=== PATIENT | male | born 1950 | race Caucasian/White ===

== ENCOUNTER 2021-03-05 15:17 | Emergency (ER) | payer MEDICARE ==
[~2021-03-05] VITALS: Ht 167.6 cm; Wt 117.9 kg
[~2021-03-05 15:17] MED LIST: ATORVASTATIN CA40 MG PO; EFFEXOR XR 3737.5 MG PO; IBUPROFEN200 MG PO; ISOSORBIDE MONO10 MG PO; RANEXA500 MG PO
[2021-03-05] MEDS ORDERED: ANUSOL-HC25 MG RC (16:37)
== END 2021-03-05 18:56 | disposition home or self-care (01) ==
LOC: ER 15:31
DX: K64.8 Other hemorrhoids (principal); I25.10 Atherosclerotic heart disease of native coronary artery without angina pectoris; I25.2 Old myocardial infarction; Z95.1 Presence of aortocoronary bypass graft; Z95.5 Presence of coronary angioplasty implant and graft; Z86.73 Personal history of transient ischemic attack (TIA), and cerebral infarction without residual deficits
CPT/HCPCS: 99282

== ENCOUNTER 2021-08-01 17:14 | Inpatient (IN) | payer MEDICARE ==
[~2021-08-01] VITALS: Ht 167.6 cm; Wt 117.9 kg
[~2021-08-01 17:14] MED LIST changes: +ANUSOL-HC25 MG RC
[2021-08-01] MEDS ORDERED: ONDANSETRON HCL INJ 2MG/ML 2ML 2 MG/ML VIAL IV STA (18:26)
[2021-08-01] MEDS ORDERED: FAMOTIDINE 20 MG/2 ML VIAL IV STA (18:26)
[2021-08-01] MEDS ORDERED: SODIUM CHLORIDE 0.9% 1000ML 1,000 ML IV SCH (18:30)
[2021-08-01] MEDS ORDERED: Morphine 4mg INJECTION 4 MG/ML INJ IV ONE (18:30)
[2021-08-01] MEDS ORDERED: ASPIRIN 81 MG CHEW TAB PO ONE (18:45)
[2021-08-01 19:20] LABS: ALBUMIN 2.1 g/dL (3.5-5.0); BILIRUBIN,DIRECT 0.9 mg/dL (0.0-0.5)
[2021-08-01] MEDS ORDERED: Morphine 4mg INJECTION 4 MG/ML INJ ONE (19:20)
[2021-08-01] MEDS ORDERED: FAMOTIDINE 20 MG/2 ML VIAL IV ONE (19:20)
[2021-08-01] MEDS ORDERED: ONDANSETRON HCL INJ 2MG/ML 2ML 2 MG/ML VIAL ONE (19:20)
[2021-08-01] MEDS ORDERED: SODIUM CHLORIDE 0.9% 1000ML 1,000 ML ONE (19:20)
[2021-08-01 19:21] LABS: ANION GAP 15.8 mmol/L (8-16); CALCIUM 8.4 mg/dL (8.4-10.2); CREATININE, SERUM 0.99 mg/dL (0.72-1.25)
[2021-08-01 19:24] LABS: POTASSIUM 2.8 mmol/L (3.5-5.1)
[2021-08-01 19:28] LABS: CREATINE KINASE MB 0.3 ng/mL (0-5.0)
[2021-08-01] MEDS ORDERED: POTASSIUM CHLORIDE 20 MEQ TAB CR PO STA (19:35)
[2021-08-01] MEDS ORDERED: POTASSIUM CHLORIDE 20 MEQ TAB CR PO ONE (19:42)
[2021-08-01] MEDS ORDERED: POTASSIUM CHLORIDE 20MEQ/100ML 100 ML ONE (19:43)
[2021-08-01] MEDS ORDERED: POTASSIUM CHLORIDE 20MEQ/100ML 100 ML IV ONE ×2 (19:45→22:30)
[2021-08-01] MEDS ORDERED: ONDANSETRON HCL INJ 2MG/ML 2ML 2 MG/ML VIAL IV PRN (20:15)
[2021-08-01] MEDS ORDERED: KCL 20MEQ/.9 SOD CHL 1,000 ML IV SCH (20:30)
[2021-08-01] MEDS: INSULIN LISPRO 100 UNIT/1 ML 3ML VIAL SQ SCH (21:00)
[2021-08-01 23:13] VITALS: BP 141/72
[2021-08-01 23:20] VITALS: BP 141/72
[2021-08-01] MEDS: SODIUM CHLORIDE 0.9% 1000ML 1,000 ML IV SCH (23:26)
[2021-08-02] VITALS (8 sets, daily range): BP systolic 99–125; BP diastolic 61–66
[2021-08-02] MEDS ORDERED: LOSARTAN POTASS25 MG PO (00:42)
[2021-08-02] MEDS ORDERED: CLOPIDOGREL75 MG PO (00:42)
[2021-08-02] MEDS ORDERED: LIPITOR10 MG PO (00:42)
[2021-08-02] MEDS ORDERED: METOPROLOL SUCC25 MG PO (00:42)
[2021-08-02] MEDS ORDERED: ASPIRIN81 MG PO (00:42)
[2021-08-02] MEDS ORDERED: AMIODARONE HCL200 MG PO (00:42)
[2021-08-02] MEDS ORDERED: ZOLPIDEM TARTRAT5 MG PO (00:42)
[2021-08-02] MEDS: Morphine 4mg INJECTION 4 MG/ML INJ IV PRN ×3 (01:30→20:37)
[2021-08-02] MEDS: SODIUM CHLORIDE 0.9% 1000ML 1,000 ML IV SCH ×2 (06:15→16:19)
[2021-08-02 06:55] LABS: BASOPHILS % 0.3 % (0.0-1.0); EOSINOPHILS # (AUTO) 0.2 (0.0-0.4); EOSINOPHILS % 1.6 % (0.0-6.0); HEMATOCRIT 35.1 % (38.2-49.6); LYMPHOCYTES # (AUTO) 1.4 (1.0-3.2); LYMPHOCYTES % 14.9 % (18.0-39.1); MEAN CORPUSCULAR HEMOGLOBIN 26.6 pg (28-32); MEAN CORPUSCULAR HGB CONC 31.3 g/dL (31-35); MONOCYTES # (AUTO) 1.2 (0.2-0.8); MONOCYTES % 12.8 % (4.4-11.3); NEUTROPHILS # (AUTO) 6.5 (2.1-6.9); NEUTROPHILS % 69.9 % (38.7-80.0); PLATELET COUNT 248 x10e3/uL (140-360); RED BLOOD COUNT 4.13 x10e6/uL (4.3-5.7); RED CELL DISTRIBUTION WIDTH 15.2 % (11.7-14.4)
[2021-08-02 07:20] LABS: ALBUMIN 1.9 g/dL (3.5-5.0); ALBUMIN/GLOBULIN RATIO 0.5 (0.8-2.0); ANION GAP 11.1 mmol/L (8-16); CALCIUM 8.2 mg/dL (8.4-10.2); CREATININE, SERUM 0.9 mg/dL (0.72-1.25); POTASSIUM 3.1 mmol/L (3.5-5.1)
[2021-08-02] MEDS: INSULIN LISPRO 100 UNIT/1 ML 3ML VIAL SQ SCH ×4 (07:30→20:27)
[2021-08-02 09:36] LABS: MAGNESIUM 2.3 MG/DL (1.3-2.1); PHOSPHORUS 3.3 MG/DL (2.3-4.7)
[2021-08-02 12:09] LABS: INR 1.22; PROTHROMBIN TIME 16.5 seconds (11.9-14.5)
[2021-08-02] MEDS ORDERED: HYDRALAZINE HCL 20 MG/ML VIAL IV PRN (14:45)
[2021-08-02] MEDS ORDERED: POLYETHYLENE GLYCOL 3350 17 GM PACK PO PRN (14:45)
[2021-08-02] MEDS ORDERED: ACETAMINOPHEN 325 MG TAB PO PRN (14:45)
[2021-08-02] MEDS ORDERED: CHOLESTYRAMINE 4 GM PACKET PO PRN (15:15)
[2021-08-02] MEDS ORDERED: POTASSIUM CHLORIDE 20 MEQ TAB CR PO ONE (16:30)
[2021-08-02 16:47] LABS: CHOL/HDL RATIO 8.5 (3.9-4.7)
[2021-08-02] MEDS: FAMOTIDINE 20 MG TAB PO SCH (17:23)
[2021-08-02] MEDS: AMIODARONE HCL 200 MG TAB PO SCH (17:23)
[2021-08-02] MEDS: METOPROLOL SUCCINATE 50 MG TAB XL PO SCH (17:24)
[2021-08-02] MEDS: ATORVASTATIN 40 MG TAB PO SCH (20:36)
[2021-08-02] MEDS ORDERED: ZOLPIDEM TARTRATE 10 MG TAB PO SCH (21:00)
[2021-08-03] VITALS (8 sets, daily range): BP systolic 102–143; BP diastolic 55–76
[2021-08-03] MEDS: SODIUM CHLORIDE 0.9% 1000ML 1,000 ML IV SCH ×2 (02:22→12:53)
[2021-08-03 05:38] LABS: BASOPHILS % 0.3 % (0.0-1.0); EOSINOPHILS # (AUTO) 0.1 (0.0-0.4); HEMATOCRIT 35.9 % (38.2-49.6); LYMPHOCYTES # (AUTO) 1.2 (1.0-3.2); LYMPHOCYTES % 16.7 % (18.0-39.1); MEAN CORPUSCULAR HEMOGLOBIN 26.4 pg (28-32); MEAN CORPUSCULAR HGB CONC 30.6 g/dL (31-35); MEAN CORPUSCULAR VOLUME 86.1 fL (81-99); MONOCYTES # (AUTO) 0.9 (0.2-0.8); MONOCYTES % 12.1 % (4.4-11.3); NEUTROPHILS # (AUTO) 4.9 (2.1-6.9); NEUTROPHILS % 68.3 % (38.7-80.0); PLATELET COUNT 276 x10e3/uL (140-360); RED BLOOD COUNT 4.17 x10e6/uL (4.3-5.7); RED CELL DISTRIBUTION WIDTH 15.5 % (11.7-14.4)
[2021-08-03 06:06] LABS: ALBUMIN 1.9 g/dL (3.5-5.0); ALBUMIN/GLOBULIN RATIO 0.5 (0.8-2.0); ANION GAP 11.7 mmol/L (8-16); CALCIUM 8.2 mg/dL (8.4-10.2); CREATININE, SERUM 0.82 mg/dL (0.72-1.25); POTASSIUM 3.7 mmol/L (3.5-5.1)
[2021-08-03] MEDS: INSULIN LISPRO 100 UNIT/1 ML 3ML VIAL SQ SCH ×4 (07:30→21:00)
[2021-08-03] MEDS: FAMOTIDINE 20 MG TAB PO SCH ×2 (07:30→17:09)
[2021-08-03] MEDS: AMIODARONE HCL 200 MG TAB PO SCH ×2 (09:13→17:10)
[2021-08-03] MEDS: METOPROLOL SUCCINATE 50 MG TAB XL PO SCH ×2 (09:14→17:10)
[2021-08-03] MEDS: LOSARTAN POTASSIUM 25 MG TAB PO SCH (09:14)
[2021-08-03] MEDS: Morphine 4mg INJECTION 4 MG/ML INJ IV PRN ×2 (17:00→22:39)
[2021-08-03] MEDS: ATORVASTATIN 40 MG TAB PO SCH (20:38)
[2021-08-03] MEDS: ZOLPIDEM TARTRATE 5 MG TAB PO SCH (20:38)
[2021-08-04] VITALS (14 sets, daily range): BP systolic 125–146; BP diastolic 57–78
[2021-08-04] MEDS: SODIUM CHLORIDE 0.9% 1000ML 1,000 ML IV SCH ×2 (02:22→10:37)
[2021-08-04] MEDS: Morphine 4mg INJECTION 4 MG/ML INJ IV PRN (05:50)
[2021-08-04 06:22] LABS: ALBUMIN 1.9 g/dL (3.5-5.0); ALBUMIN/GLOBULIN RATIO 0.5 (0.8-2.0); ANION GAP 11.6 mmol/L (8-16); CREATININE, SERUM 0.89 mg/dL (0.72-1.25); POTASSIUM 3.6 mmol/L (3.5-5.1)
[2021-08-04] MEDS: INSULIN LISPRO 100 UNIT/1 ML 3ML VIAL SQ SCH ×4 (07:30→21:00)
[2021-08-04 08:12] LABS: BASOPHILS % 0.3 % (0.0-1.0); EOSINOPHILS # (AUTO) 0.2 (0.0-0.4); EOSINOPHILS % 2.5 % (0.0-6.0); HEMATOCRIT 37.5 % (38.2-49.6); HEMOGLOBIN 11.5 g/dL (14.0-18.0); LYMPHOCYTES # (AUTO) 1.4 (1.0-3.2); LYMPHOCYTES % 17.6 % (18.0-39.1); MEAN CORPUSCULAR HEMOGLOBIN 26.6 pg (28-32); MEAN CORPUSCULAR HGB CONC 30.7 g/dL (31-35); MEAN CORPUSCULAR VOLUME 86.8 fL (81-99); MONOCYTES % 12.7 % (4.4-11.3); NEUTROPHILS # (AUTO) 5.2 (2.1-6.9); NEUTROPHILS % 66.3 % (38.7-80.0); PLATELET COUNT 267 x10e3/uL (140-360); RED BLOOD COUNT 4.32 x10e6/uL (4.3-5.7); RED CELL DISTRIBUTION WIDTH 15.6 % (11.7-14.4)
[2021-08-04 08:23] LABS: INR 1.14; PROTHROMBIN TIME 15.6 seconds (11.9-14.5)
[2021-08-04] MEDS ORDERED: LIDOCAINE HCL 1% LOCAL INJ 20 ML VIAL ONE (10:56)
[2021-08-04] MEDS ORDERED: MIDAZOLAM HCL 2 MG/2 ML VIAL ONE (11:06)
[2021-08-04] MEDS ORDERED: FENTANYL CITRATE/PF 100MCG/2 ML INJ ONE (11:06)
[2021-08-04] MEDS: AMIODARONE HCL 200 MG TAB PO SCH ×2 (13:34→16:45)
[2021-08-04] MEDS: FAMOTIDINE 20 MG TAB PO SCH ×2 (13:34→16:45)
[2021-08-04] MEDS: LOSARTAN POTASSIUM 25 MG TAB PO SCH (13:35)
[2021-08-04] MEDS: METOPROLOL SUCCINATE 50 MG TAB XL PO SCH ×2 (13:35→16:45)
[2021-08-04] MEDS: ATORVASTATIN 40 MG TAB PO SCH (21:00)
[2021-08-04] MEDS: ZOLPIDEM TARTRATE 5 MG TAB PO SCH (21:00)
[2021-08-05] VITALS (7 sets, daily range): BP systolic 113–140; BP diastolic 54–65
[2021-08-05] MEDS: Morphine 4mg INJECTION 4 MG/ML INJ IV PRN ×2 (00:02→21:25)
[2021-08-05 02:07] LABS: % IRON SATURATION 20 % (15-50); IRON 45 ug/dL (65-175); TOTAL IRON BINDING CAPACITY 224 ug/dL (261-478); TRANSFERRIN 160 mg/dL (174-364)
[2021-08-05] MEDS ORDERED: SODIUM CHLORIDE 0.9% 250ML 250 ML ONE (02:16)
[2021-08-05 07:00] LABS: BASOPHILS % 0.5 % (0.0-1.0); EOSINOPHILS # (AUTO) 0.2 (0.0-0.4); EOSINOPHILS % 2.7 % (0.0-6.0); HEMOGLOBIN 11.9 g/dL (14.0-18.0); MEAN CORPUSCULAR HEMOGLOBIN 27.1 pg (28-32); MEAN CORPUSCULAR HGB CONC 31.3 g/dL (31-35); MEAN CORPUSCULAR VOLUME 86.6 fL (81-99); NEUTROPHILS # (AUTO) 4.9 (2.1-6.9); NEUTROPHILS % 60.2 % (38.7-80.0); PLATELET COUNT 336 x10e3/uL (140-360); RED BLOOD COUNT 4.39 x10e6/uL (4.3-5.7); RED CELL DISTRIBUTION WIDTH 15.9 % (11.7-14.4)
[2021-08-05 07:28] LABS: ALBUMIN/GLOBULIN RATIO 0.5 (0.8-2.0); ANION GAP 11.6 mmol/L (8-16); CALCIUM 8.3 mg/dL (8.4-10.2); CREATININE, SERUM 0.88 mg/dL (0.72-1.25); POTASSIUM 3.6 mmol/L (3.5-5.1)
[2021-08-05] MEDS: FAMOTIDINE 20 MG TAB PO SCH ×2 (07:30→17:54)
[2021-08-05] MEDS: INSULIN LISPRO 100 UNIT/1 ML 3ML VIAL SQ SCH ×4 (07:30→20:36)
[2021-08-05] MEDS: METOPROLOL SUCCINATE 50 MG TAB XL PO SCH ×2 (09:00→17:00)
[2021-08-05] MEDS: AMIODARONE HCL 200 MG TAB PO SCH ×2 (09:00→17:56)
[2021-08-05] MEDS ORDERED: MIDAZOLAM HCL 2 MG/2 ML VIAL ONE (13:20)
[2021-08-05] MEDS ORDERED: FENTANYL CITRATE/PF 100MCG/2 ML INJ ONE (13:20)
[2021-08-05] MEDS ORDERED: PROPOFOL IV EMULSION 10 MG/ML 20 ML VIAL ONE (15:39)
[2021-08-05] MEDS ORDERED: POVIDONE IODINE 0.05% 0.05 % ML PO ONE (15:39)
[2021-08-05] MEDS ORDERED: DONNATAL/LIDOCAINE/MAALOX 30 ML SUSP PO SCH (17:00)
[2021-08-05] MEDS: LOSARTAN POTASSIUM 25 MG TAB PO SCH (17:55)
[2021-08-05] MEDS: ATORVASTATIN 40 MG TAB PO SCH (20:43)
[2021-08-05] MEDS: ZOLPIDEM TARTRATE 5 MG TAB PO SCH (20:43)
[2021-08-06] VITALS (8 sets, daily range): BP systolic 111–146; BP diastolic 52–77
[2021-08-06] MEDS ORDERED: DONNATAL/LIDOCAINE/MAALOX 30 ML SUSP PO ONE (01:00)
[2021-08-06] MEDS ORDERED: HYDROCORTISONE ACETATE 25 MG/SUPP.RECT SUPP RC ONE (01:30)
[2021-08-06] MEDS ORDERED: LIDOCAINE VISC 2% SOLN 15 ML UDC PO ONE (01:45)
[2021-08-06] MEDS ORDERED: BELLADONNA ALK/PHENOBARBITAL 5 ML UDC PO ONE (01:45)
[2021-08-06] MEDS ORDERED: MAGNESIUM/ALUMINUM/SIMETHICONE 30 ML UDC PO ONE (01:45)
[2021-08-06] MEDS: INSULIN LISPRO 100 UNIT/1 ML 3ML VIAL SQ SCH ×4 (07:30→20:00)
[2021-08-06] MEDS: FAMOTIDINE 20 MG TAB PO SCH ×2 (09:13→18:00)
[2021-08-06] MEDS: AMIODARONE HCL 200 MG TAB PO SCH ×2 (09:14→18:00)
[2021-08-06] MEDS: LOSARTAN POTASSIUM 25 MG TAB PO SCH (09:15)
[2021-08-06] MEDS: METOPROLOL SUCCINATE 50 MG TAB XL PO SCH ×2 (09:15→18:01)
[2021-08-06] MEDS: HYDROCORTISONE ACETATE 25 MG/SUPP.RECT SUPP RC SCH ×2 (09:18→18:01)
[2021-08-06] MEDS: Morphine 4mg INJECTION 4 MG/ML INJ IV PRN ×3 (09:47→21:10)
[2021-08-06] MEDS ORDERED: Morphine 2mg Syringe 2 MG/ML SYR ONE (09:59)
[2021-08-06] MEDS ORDERED: BISACODYL 5 MG TAB EC PO ONE ×2 (18:00→18:30)
[2021-08-06] MEDS: ATORVASTATIN 40 MG TAB PO SCH (20:00)
[2021-08-06] MEDS: ZOLPIDEM TARTRATE 5 MG TAB PO SCH (20:00)
[2021-08-06] MEDS ORDERED: CITRATE OF MAGNESIA 300ML BOTTLE PO ONE (21:00)
[2021-08-07] VITALS (7 sets, daily range): BP systolic 121–144; BP diastolic 62–70
[2021-08-07] MEDS: Morphine 4mg INJECTION 4 MG/ML INJ IV PRN ×2 (01:31→10:02)
[2021-08-07] MEDS ORDERED: CITRATE OF MAGNESIA 300ML BOTTLE PO ONE (07:00)
[2021-08-07] MEDS: INSULIN LISPRO 100 UNIT/1 ML 3ML VIAL SQ SCH ×3 (07:30→16:30)
[2021-08-07 08:14] LABS: BASOPHILS % 0.5 % (0.0-1.0); EOSINOPHILS # (AUTO) 0.3 (0.0-0.4); EOSINOPHILS % 3.6 % (0.0-6.0); HEMATOCRIT 40.7 % (38.2-49.6); HEMOGLOBIN 12.3 g/dL (14.0-18.0); LYMPHOCYTES # (AUTO) 1.8 (1.0-3.2); LYMPHOCYTES % 20.5 % (18.0-39.1); MEAN CORPUSCULAR HEMOGLOBIN 26.9 pg (28-32); MEAN CORPUSCULAR HGB CONC 30.2 g/dL (31-35); MEAN CORPUSCULAR VOLUME 89.1 fL (81-99); MONOCYTES % 11.2 % (4.4-11.3); NEUTROPHILS # (AUTO) 5.6 (2.1-6.9); PLATELET COUNT 315 x10e3/uL (140-360); RED BLOOD COUNT 4.57 x10e6/uL (4.3-5.7); RED CELL DISTRIBUTION WIDTH 16.2 % (11.7-14.4)
[2021-08-07 08:32] LABS: ANION GAP 11.3 mmol/L (8-16); CALCIUM 8.2 mg/dL (8.4-10.2); CREATININE, SERUM 1.07 mg/dL (0.72-1.25); POTASSIUM 3.3 mmol/L (3.5-5.1)
[2021-08-07] MEDS: METOPROLOL SUCCINATE 50 MG TAB XL PO SCH (10:02)
[2021-08-07] MEDS: FAMOTIDINE 20 MG TAB PO SCH ×2 (10:02→16:30)
[2021-08-07] MEDS: LOSARTAN POTASSIUM 25 MG TAB PO SCH (10:02)
[2021-08-07] MEDS: HYDROCORTISONE ACETATE 25 MG/SUPP.RECT SUPP RC SCH (10:02)
[2021-08-07] MEDS: AMIODARONE HCL 200 MG TAB PO SCH (10:02)
[2021-08-07] MEDS ORDERED: MIDAZOLAM HCL 2 MG/2 ML VIAL ONE (12:55)
[2021-08-07] MEDS ORDERED: FENTANYL CITRATE/PF 100MCG/2 ML INJ ONE (12:55)
[2021-08-07] MEDS ORDERED: POVIDONE IODINE 0.05% 0.05 % ML PO ONE (13:21)
[2021-08-07] MEDS ORDERED: PROPOFOL IV EMULSION 10 MG/ML 20 ML VIAL ONE (13:21)
[2021-08-07] MEDS ORDERED: BISACODYL 5 MG TAB EC PO ONE (13:25)
[2021-08-07] MEDS ORDERED: HYDROCODONE/APAP 10MG-325MG TAB PO PRN (17:00)
[2021-08-07] MEDS ORDERED: HYDROCODON-ACE1 EAC9 PO (19:49)
[2021-08-07] MEDS ORDERED: CHOLESTYRAMINE L4 GM PO (19:49)
[2021-08-07] MEDS ORDERED: PROTONIX40 MG PO (19:49)
== END 2021-08-07 21:23 | disposition home or self-care (01) | DRG 844 ==
LOC: FSED 17:42 → ERHOLD 20:14 → MED/SURG3 21:57
PROVIDERS: ADMIT Internal Medicine; ATTEND Internal Medicine
PROC: 0FB03ZX Excision of Liver, Percutaneous Approach, Diagnostic (ICD-10-PCS; principal; 2021-08-04)
PROC: 0DB68ZZ Excision of Stomach, Via Natural or Artificial Opening Endoscopic (ICD-10-PCS; 2021-08-05)
PROC: 0DB78ZX Excision of Stomach, Pylorus, Via Natural or Artificial Opening Endoscopic, Diagnostic (ICD-10-PCS; 2021-08-05)
PROC: 0DBK8ZX Excision of Ascending Colon, Via Natural or Artificial Opening Endoscopic, Diagnostic (ICD-10-PCS; 2021-08-07)
PROC: 0DBM8ZX Excision of Descending Colon, Via Natural or Artificial Opening Endoscopic, Diagnostic (ICD-10-PCS; 2021-08-07)
DX: C7B.8 Other secondary neuroendocrine tumors (principal); Z68.41 Body mass index [BMI] 40.0-44.9, adult; I25.10 Atherosclerotic heart disease of native coronary artery without angina pectoris; I25.2 Old myocardial infarction; M17.11 Unilateral primary osteoarthritis, right knee; G43.909 Migraine, unspecified, not intractable, without status migrainosus; M54.9 Dorsalgia, unspecified; Z85.46 Personal history of malignant neoplasm of prostate; E78.5 Hyperlipidemia, unspecified; Z79.82 Long term (current) use of aspirin; Z99.89 Dependence on other enabling machines and devices; Z79.899 Other long term (current) drug therapy; Z95.1 Presence of aortocoronary bypass graft; M25.511 Pain in right shoulder; Z79.01 Long term (current) use of anticoagulants; K74.60 Unspecified cirrhosis of liver; E87.6 Hypokalemia; E66.01 Morbid (severe) obesity due to excess calories; I11.0 Hypertensive heart disease with heart failure; I50.9 Heart failure, unspecified; Z20.822 Contact with and (suspected) exposure to COVID-19; K44.9 Diaphragmatic hernia without obstruction or gangrene; K20.90 Esophagitis, unspecified without bleeding; G89.4 Chronic pain syndrome; C80.1 Malignant (primary) neoplasm, unspecified
CPT/HCPCS: 36415; 43239; 45385; 47000; 74470; 76942; 80048; 80053; 80061; 80076; 81003; 82140; 82550; 82553; 82607; 82746; 82948; 83036; 83540; 83630; 83690; 83735; 84100; 84443; 84466; 84484; 85025; 85610; 87045; 87177; 87493; 88305; 88307; 88312; 88342; 93005; 94799; 96361; 99284; J2001; J2250; J2270; J2405; J3010; J3480; J7030; J7050